=== PATIENT | male | born 1985 | race Two or more races ===

== ENCOUNTER 2016-09-19 00:39 | Emergency (ER) | payer SELFPAY ==
[2016-09-19] MEDS ORDERED: LIDOCAINE 2% INJ (20 MG/ML) 20 ML MDV INJ ONE (02:31)
[2016-09-19] MEDS ORDERED: IBUPROFEN 600 MG TABLET PO ONE (02:32)
--- NOTE | 2016-09-19 02:33 | ER Document Report ---
ED Wound - General Chief Complaint: Laceration Stated Complaint: RIGHT LEG LACERATION Mode of Arrival: Ambulatory Information source: Patient TRAVEL OUTSIDE OF THE U[place] IN LAST 30 DAYS: No - HPI Notes: Patient states he was at a friend's house when he tripped on a piece of wood and hit his right bravo on the wood. At approximately 7:00. He now has a laceration to the right bravo. He denies any numbness, tingling, weakness. He denies any nausea vomiting diarrhea. He denies any loss of consciousness. He denies any other injuries. Tetanus is up-to-date. Bleeding is controlled. No other complaints at this time. The pain is worse with touching the area, nothing makes it better. - Related Data Allergies/Adverse Reactions: clindamycin [Clindamycin] Allergy (Mild, Verified 08/26/14 17:30) Hives Sulfa (Sulfonamide Antibiotics) Allergy (Mild, Verified 08/26/14 17:30) Hives Past Medical History - Social History Smoking Status: Unknown if Ever Smoked Family History: Reviewed & Not Pertinent Patient has suicidal ideation: No Patient has homicidal ideation: No Pulmonary Medical History: Denies: Hx Tuberculosis Renal/ Medical History: Denies: Hx Peritoneal Dialysis Skin Medical History: Reports Hx MRSA Psychiatric Medical History: Reports: Hx Bipolar Disorder, Hx Post Traumatic Stress Disorder Infectious Medical History: Reports: Hx MRSA Past Surgical History: Reports: Hx Orthopedic Surgery - C2 fracture. Denies: Hx Pacemaker - Immunizations Immunizations up to date: Yes Hx Diphtheria, Pertussis, Tetanus Vaccination: Yes Review of Systems - Review of Systems -: Yes All other systems reviewed and negative Physical Exam - Vital signs Vitals: Temp Pulse Resp BP Pulse Ox 98.4 F 81 14 125/74 100 09/19/16 00:57 09/19/16 00:57 09/19/16 00:57 09/19/16 00:57 09/19/16 00:57 - Notes Notes: GENERAL: alert, cooperative, nontoxic, no distress. HEAD: normocephalic, atraumatic EYES: conjunctiva pink without discharge, no external redness or swelling. EARS: no external swelling, no external redness NOSE: atraumatic, no external swelling MOUTH/THROAT: mucous membranes moist and pink, posterior pharynx without erythema, swelling, exudate. No trismus or drooling. NECK: soft, supple, full range of motion, no meningismus. CHEST: no distress, lungs clear and equal throughout. No wheezing, rales, rhonchi. CARDIAC: regular rate and rhythm, no murmur, normal capillary refill, normal pulses. No peripheral edema noted. BACK: full range of motion, no CVA tenderness. EXTREMITIES: full range of motion of all extremities. No redness, no swelling. NEURO: alert and oriented 3, no focal deficits, full range of motion of all extremities. PYSCH: appropriate mood, affect. Patient is cooperative. SKIN: pink, warm, dry, no rash. - Skin Notes: 5 cm V-shaped laceration to the right anterior bravo. This is in the subcutaneous tissue. No foreign body identified. Bleeding is controlled. Compartments are soft. Normal neurovascular exam distally. Course - Re-evaluation Re-evalutation: 09/19/16 04:22 Patient is nontoxic appearing and stable vitals. The patient noted to have a laceration to the anterior right bravo. X-ray shows no fracture or foreign body. There is a small lucency in the posterior lateral aspect of the tibia which could represent a possible bone puncture. With this the patient was given a dose of Keflex. His tetanus is up-to-date. Was going to suture the wound closed, the patient declined to have this done at this time. I discussed the risks and benefits of suturing the wound and the patient still declines suture repair at this time. That if he comes back later that we'll not be able to suture the wound is a well -developed and open for 2 long, he verbalized an understanding of this. This point the wound is not bleeding and the wound margins are fairly well approximated. Wound was cleaned and will have a sterile nonstick dressing applied. He will be instructed to clean the wound twice a day with soap and water, dressing changes twice a day, follow up if not better in the next week, sooner for increased pain, fever, redness, drainage, any further concerns. The patient is noted to have elevated blood pressure during today's emergency department visit. The patient was informed of this finding. The patient was instructed that this may be related to pre-hypertension and requires further evaluation with a primary care provider. The patient has no hypertensive symptoms at this time. The patient's emergency department workup and current diagnosis were explained to the patient and or family. Follow-up instructions were provided. Medications if prescribed were discussed. Instructions for when to return to the emergency department including specific worrisome symptoms were discussed with the patient and/or family. - Vital Signs Vital signs: Temp Pulse Resp BP Pulse Ox 98.4 F 81 14 125/74 100 09/19/16 00:57 09/19/16 00:57 09/19/16 00:57 09/19/16 00:57 09/19/16 00:57 Discharge - Discharge Clinical Impression: Leg laceration Qualifiers: Encounter type: initial encounter Laterality: right Qualified Code(s): S81.811A - Laceration without foreign body, right lower leg, initial encounter Disposition: HOME, SELF-CARE Instructions: Laceration Care ([facility]) Additional Instructions: Wound twice a day with soap and water and keep a sterile dressing applied. Follow-up for increased pain, fever, redness, drainage, any further concerns. Your blood pressure was elevated during today's visit. Have this rechecked with your doctor. The medication you were prescribed today may cause drowsiness. Do not drive or operate heavy machinery while taking this medication. Prescriptions: Tramadol HCl [Ultram 50 mg Tablet] 50 mg PO Q6HP PRN #12 tablet PRN Reason: Cephalexin [Cephalexin 500 MG Tablet] 1 tab PO QID #40 tablet Forms: Elevated Blood Pressure
[2016-09-19] MEDS ORDERED: CEPHALEXIN 500 MG CAPSULE PO ONE (04:04)
[2016-09-19 04:35] VITALS: BP 109/49
== END 2016-09-19 04:36 | disposition home or self-care (01) ==
LOC: ER 00:39
DX: S81.811A Laceration without foreign body, right lower leg, initial encounter (principal); W18.09XA Striking against other object with subsequent fall, initial encounter
CPT/HCPCS: 99283; 73590; J3490

== ENCOUNTER 2017-12-28 08:58 | Emergency (ER) | payer SELFPAY ==
--- NOTE | 2017-12-28 09:41 | ER Document Report ---
ED Medical Screen (RME) - General Chief Complaint: Chest Pain Stated Complaint: BACK/CHEST PAINS Time Seen by Provider: 12/28/17 09:30 Notes: Patient is complaining of pain in the front of his chest for the past month, off and on. He has been seen at [facility] twice during this timeframe. Says they have done nothing for him. He did say that they did a chest x-ray but does not recall any other studies. Patient became upset with my questioning and pointing out that a chest x-ray is something, not nothing. TRAVEL OUTSIDE OF THE [place].S[place] IN LAST 30 DAYS: No - Related Data Allergies/Adverse Reactions: clindamycin [Clindamycin] Allergy (Mild, Verified 12/28/17 08:59) Hives Sulfa (Sulfonamide Antibiotics) Allergy (Mild, Verified 12/28/17 08:59) Hives Past Medical History Pulmonary Medical History: Denies: Hx Tuberculosis Renal/ Medical History: Denies: Hx Peritoneal Dialysis Skin Medical History: Reports Hx MRSA Psychiatric Medical History: Reports: Hx Bipolar Disorder, Hx Post Traumatic Stress Disorder Infectious Medical History: Reports: Hx MRSA Past Surgical History: Reports: Hx Orthopedic Surgery - C2 fracture. Denies: Hx Pacemaker - Immunizations Immunizations up to date: Yes Hx Diphtheria, Pertussis, Tetanus Vaccination: Yes Physical Exam - Vital signs Vitals: Temp Pulse Resp BP Pulse Ox 99.1 F 86 18 119/73 99 12/28/17 09:08 12/28/17 09:08 12/28/17 09:08 12/28/17 09:08 12/28/17 09:08 Course - Vital Signs Vital signs: Temp Pulse Resp BP Pulse Ox 99.1 F 86 18 119/73 99 12/28/17 09:08 12/28/17 09:08 12/28/17 09:08 12/28/17 09:08 12/28/17 09:08
[2017-12-28 09:59] LABS: ABSOLUTE BASOPHILS # (AUTO) 0.1 10^3/uL (0.0-0.2); ABSOLUTE EOSINOPHILS # (AUTO) 0.1 10^3/uL (0.0-0.6); ABSOLUTE LYMPHOCYTES (AUTO) 2.6 10^3/uL (0.5-4.7); ABSOLUTE MONOCYTES (AUTO) 0.4 10^3/uL (0.1-1.4); ABSOLUTE NEUT (AUTO) 2.2 10^3/uL (1.7-8.2); EOSINOPHILS % (AUTO) 1.1 % (0-6); HEMATOCRIT 39.3 % (37.9-51.0); HEMOGLOBIN 13.4 g/dL (13.5-17.0); LYMPHOCYTES % (AUTO) 48.8 % (13-45); MEAN CORPUSCULAR HEMOGLOBIN 32.3 pg (27.0-33.4); MEAN CORPUSCULAR VOLUME 95 fl (80-97); MONOCYTES % (AUTO) 7.3 % (3-13); PLATELET COUNT 220 10^3/uL (150-450); RED BLOOD COUNT 4.14 10^6/uL (4.35-5.55); SEGMENTED NEUTROPHILS % (AUTO) 41.8 % (42-78); TOTAL CELLS COUNTED % (AUTO) 100 %; WHITE BLOOD COUNT 5.3 10^3/uL (4.0-10.5)
--- NOTE | 2017-12-28 10:07 | ER Document Report ---
ED General - General Chief Complaint: Chest Pain Stated Complaint: BACK/CHEST PAINS Time Seen by Provider: 12/28/17 09:30 Mode of Arrival: Ambulatory Information source: Patient TRAVEL OUTSIDE OF THE [place] IN LAST 30 DAYS: No - HPI Notes: 32 yr old with a history of smoking a pack a day for at least 10 years male presents ED with complaints of chest pain 1 month. Reportedly has been evaluated with blood work and chest x-ray and told by a physician 2 weeks ago, is unsure what was checked for but states they "did nothing for me". States he took "some antibiotics that I find for a few days "states he felt better" couple weeks ago. Denies fevers, chills, palpitations, dyspnea, nausea, vomiting, diarrhea, abdominal pain, hematuria,blurred vision, double vision, loss of vision, speech changes, LH, dizziness, syncope, headaches, wheezing, ST , URI, neck pain, weakness, bowel or bladder dysfunction, saddle anesthesia, numbness or tingling in bilateral upper or lower extremities equally, muscle paralysis, weakness in bilateral upper or lower extremities equally or rash. Denies IV drug use. - Related Data Allergies/Adverse Reactions: clindamycin [Clindamycin] Allergy (Mild, Verified 12/28/17 08:59) Hives Sulfa (Sulfonamide Antibiotics) Allergy (Mild, Verified 12/28/17 08:59) Hives Past Medical History - General Information source: Patient - Social History Smoking Status: Current Every Day Smoker Chew tobacco use (# tins/day): No Frequency of alcohol use: None Drug Abuse: None Family History: Reviewed & Not Pertinent Patient has suicidal ideation: No Patient has homicidal ideation: No Pulmonary Medical History: Denies: Hx Tuberculosis Renal/ Medical History: Denies: Hx Peritoneal Dialysis Skin Medical History: Reports Hx MRSA Psychiatric Medical History: Reports: Hx Bipolar Disorder, Hx Post Traumatic Stress Disorder Infectious Medical History: Reports: Hx MRSA Past Surgical History: Reports: Hx Orthopedic Surgery - C2 fracture. Denies: Hx Pacemaker - Immunizations Immunizations up to date: Yes Hx Diphtheria, Pertussis, Tetanus Vaccination: Yes Review of Systems - Review of Systems Constitutional: No symptoms reported EENT: No symptoms reported Cardiovascular: See HPI Respiratory: No symptoms reported Gastrointestinal: No symptoms reported Genitourinary: No symptoms reported Male Genitourinary: No symptoms reported Musculoskeletal: No symptoms reported Skin: No symptoms reported Hematologic/Lymphatic: No symptoms reported Neurological/Psychological: No symptoms reported Physical Exam - Vital signs Vitals: Temp Pulse Resp BP Pulse Ox 99.1 F 86 18 119/73 99 12/28/17 09:08 12/28/17 09:08 12/28/17 09:08 12/28/17 09:08 12/28/17 09:08 - Notes Notes: PHYSICAL EXAMINATION: GENERAL: Well-appearing, well-nourished and in no acute distress. HEAD: Atraumatic, normocephalic. EYES: Pupils equal round and reactive to light, extraocular movements intact, sclera anicteric, conjunctiva are normal. ENT: Nares patent, oropharynx clear without exudates. Moist mucous membranes. NECK: Normal range of motion, supple without lymphadenopathy LUNGS: Breath sounds clear to auscultation bilaterally and equal. No wheezes rales or rhonchi. HEART: Regular rate and rhythm without murmurs ABDOMEN: Soft, nontender, nondistended abdomen. No guarding, no rebound. No masses appreciated. Musculoskeletal: Normal range of motion, no pitting or edema. No cyanosis. NEUROLOGICAL: Cranial nerves grossly intact. Normal speech, normal gait. Normal sensory, motor exams PSYCH: aggressive and yelling SKIN: Warm, Dry, normal turgor, no rashes or lesions noted. Course - Re-evaluation Re-evalutation: 12/28/17 11:09 32-year-old male who is afebrile, vitals stable and is in no distress CBC negative for leukocytosis, CMP negative for renal or hepatic disorder, electrolytes stable, cardiac enzymes negative. EKG negative for STEMI, heart rate 83, no ST segment elevations or STEMI. This provider did a physical exam while speaking with patient due to patient being aggressive, after complaining exam, patient was trying to explain to this provider that he thinks his infection "came out in my shit". This provider explained to the patient that he needed to clarify what that meant, any discoloration, melena, watery versus for etc., patient to ask started to yell "the infection came out in my shit" repeti is a female which is like tively without providing clarity. Pt stood up, pointed his finger at this provider while cursing and yelling degrading and deplorable offensive language. This provider patient that he needed to calm down , advised cursing is not acceptable and he needs to be respectful, this patient continued to scream obscenities. This provider left the room due to not feeling safe being alone with patient in room and was going to have security come to room. Patient left the room without any discharge information and eloped. After performing a Medical Screening Examination, I estimate there is LOW risk for RUPTURED ESOPHAGUS, PNEUMOTHORAX, PULMONARY EMBOLISM, ACUTE CORONARY SYNDROME, OR THORACIC AORTIC DISSECTION, thus I consider the discharge disposition reasonable. I have reevaluated this patient multiple times and no significant life threatening changes are noted. The patient and I have discussed the diagnosis and risks, and we agree with discharging home with close follow-up. We also discussed returning to the Emergency Department immediately if new or worsening symptoms occur. We have discussed the symptoms which are most concerning (e.g., bloody sputum, worsening pain or shortness of breath) that necessitate immediate return. 12/28/17 13:27 - Vital Signs Vital signs: Temp Pulse Resp BP Pulse Ox 99.1 F 86 13 121/70 98 12/28/17 09:08 12/28/17 09:08 12/28/17 10:35 12/28/17 10:35 12/28/17 10:35 - Laboratory Result Diagrams: 12/28/17 09:45 12/28/17 09:45 Laboratory results interpreted by me: 12/28/17 12/28/17 09:45 09:45 RBC 4.14 L Hgb 13.4 L Seg Neutrophils % 41.8 L Lymphocytes % 48.8 H Creatine Kinase 409 H Discharge - Discharge Clinical Impression: Costochondritis, History of smoking, Cough Condition: Stable Disposition: ELOPED
[2017-12-28 10:12] LABS: ALANINE AMINOTRANSFERASE 34 U/L (21-72); ALBUMIN 4.7 g/dL (3.5-5.0); ALKALINE PHOSPHATASE 61 U/L (38-126); ANION GAP 10 (5-19); ASPARTATE AMINO TRANSFERASE 38 U/L (17-59); BILIRUBIN,DIRECT 0.3 mg/dL (0.0-0.4); BILIRUBIN,TOTAL 0.8 mg/dL (0.2-1.3); BLOOD UREA NITROGEN 12 mg/dL (7-20); CALCIUM 9.7 mg/dL (8.4-10.2); CARBON DIOXIDE 27 mmol/L (22-30); CHLORIDE 106 mmol/L (98-107); CREATINE KINASE 409 U/L (55-170); GLUCOSE 101 mg/dL (75-110); LIPASE 39.1 U/L (23-300); POTASSIUM 4.6 mmol/L (3.6-5.0); SODIUM 143.3 mmol/L (137-145); TOTAL PROTEIN 7.4 g/dL (6.3-8.2)
[2017-12-28 10:24] LABS: CREATINE KINASE MB 4.06 ng/mL (<4.55)
[2017-12-28 10:25] LABS: TROPONIN I < 0.012 ng/mL
--- NOTE | 2017-12-28 10:51 | RADIOLOGY REPORT (SQ) ---
EXAM DESCRIPTION: CHEST 2 VIEWS COMPLETED DATE/TIME: 12/28/2017 10:13 am REASON FOR STUDY: Chest pain COMPARISON: September 2013 EXAM PARAMETERS: NUMBER OF VIEWS: two views TECHNIQUE: Digital Frontal and Lateral radiographic views of the chest acquired. RADIATION DOSE: NA LIMITATIONS: none FINDINGS: LUNGS AND PLEURA: No opacities, masses or pneumothorax. No pleural effusion. MEDIASTINUM AND HILAR STRUCTURES: No masses or contour abnormalities. HEART AND VASCULAR STRUCTURES: Heart normal size. No evidence for failure. BONES: No acute findings. HARDWARE: None in the chest. OTHER: No other significant finding. IMPRESSION: NO ACUTE RADIOGRAPHIC FINDING IN THE CHEST. TECHNICAL DOCUMENTATION: JOB ID: [id number] [employer]- All Rights Reserved Reading location - IP/workstation name: [email or web address]
[2017-12-28 11:11] VITALS: BP 121/70
--- NOTE | 2017-12-29 00:18 | EKG REPORT ---
SEVERITY:- NORMAL ECG - SINUS RHYTHM : Confirmed by: Daija Barakat MD 29-Dec-2017 00:16:56
== END 2017-12-28 11:09 | disposition left against medical advice (07) ==
LOC: ER 08:58
DX: R07.9 Chest pain, unspecified (principal); M54.9 Dorsalgia, unspecified; F17.200 Nicotine dependence, unspecified, uncomplicated; Z88.3 Allergy status to other anti-infective agents; Z88.2 Allergy status to sulfonamides; Z86.14 Personal history of Methicillin resistant Staphylococcus aureus infection
CPT/HCPCS: 36415; 71046; 80053; 82550; 82553; 83690; 84484; 85025; 93005; 93010; 99285

== ENCOUNTER 2019-01-10 23:51 | Emergency (ER) | payer SELFPAY ==
--- NOTE | 2019-01-11 01:36 | ER Document Report ---
ED Psych Disorder / Suicide - General Chief Complaint: Psych Problem Stated Complaint: IVC Time Seen by Provider: 01/11/19 00:59 Notes: Patient is a 33-year-old male that comes emergency department with law enforcement escort for chief complaint of suicidal ideations and making threats to his family. Patient comes with already completed IVC paperwork. This was reportedly completed by his significant other. Reportedly patient had been text ing his family that his life was worthless and he did not want to live anymore. He also reportedly threatened to kill himself and everyone in the vehicle earlier today. Patient states that he feels like he is under a ton of stress and that no matter how hard he works he does not get shown any appreciation by his family. He does have past medical history of bipolar disorder, PTSD, and Suboxone dependence. Patient denies any recreational drugs, denies alcohol, states he was actually planning on going" drinking heavily tonight" before he was picked up, he states he used to have a problem with heavy alcohol abuse. He states that he actually does not mind being here because he feels like he does need some help. TRAVEL OUTSIDE OF THE [place] IN LAST 30 DAYS: No - Related Data Allergies/Adverse Reactions: clindamycin [Clindamycin] Allergy (Mild, Verified 01/10/19 23:53) Hives Sulfa (Sulfonamide Antibiotics) Allergy (Mild, Verified 01/10/19 23:53) Hives Past Medical History - General Information source: Patient - Social History Smoking Status: Current Some Day Smoker Drug Abuse: Marijuana Lives with: Family Family History: Reviewed & Not Pertinent Pulmonary Medical History: Denies: Hx Tuberculosis Renal/ Medical History: Denies: Hx Peritoneal Dialysis Skin Medical History: Reports Hx MRSA Psychiatric Medical History: Reports: Hx Bipolar Disorder, Hx Post Traumatic Stress Disorder Infectious Medical History: Reports: Hx MRSA Past Surgical History: Reports: Hx Orthopedic Surgery - C2 fracture. Denies: Hx Pacemaker - Immunizations Immunizations up to date: Yes Hx Diphtheria, Pertussis, Tetanus Vaccination: Yes Review of Systems - Review of Systems Constitutional: No symptoms reported EENT: No symptoms reported Cardiovascular: No symptoms reported Respiratory: No symptoms reported Gastrointestinal: No symptoms reported Genitourinary: No symptoms reported Male Genitourinary: No symptoms reported Musculoskeletal: No symptoms reported Skin: No symptoms reported Hematologic/Lymphatic: No symptoms reported Neurological/Psychological: See HPI Physical Exam - Vital signs Vitals: Temp Pulse Resp BP Pulse Ox 98.1 F 85 18 120/66 97 01/10/19 23:54 01/10/19 23:54 01/10/19 23:54 01/10/19 23:54 01/10/19 23:54 Course - Re-evaluation Re-evalutation: Patient is very calm, very cooperative, stating he does not mind being here. He is already on IVC paperwork. His physical exam is unremarkable, his vital signs are unremarkable. CBC, chemistry unremarkable. Urinalysis shows some white blood cells but patient has no flank pain, vomiting, or urinary symptoms. Culture placed. He states that he gets dehydrated from working outside, elevate specific gravity noted, he was given p.o. fluids. Alcohol, salicylates, acetaminophen negative. Drug screen shows marijuana but is otherwise unremarkable. Patient sleeping on reevaluation. Patient is medically cleared pending mental health evaluation. - Vital Signs Vital signs: Temp Pulse Resp BP Pulse Ox 98.1 F 85 18 120/66 97 01/10/19 23:54 01/10/19 23:54 01/10/19 23:54 01/10/19 23:54 01/10/19 23:54 - Laboratory Result Diagrams: 01/11/19 01:28 01/11/19 01:28 Laboratory results interpreted by me: 01/11/19 01/11/19 01/11/19 01:28 01:28 03:58 RBC 3.79 L Hgb 12.2 L Hct 35.9 L Potassium 3.5 L Urine Ketones TRACE H Urine Urobilinogen 4.0 H Ur Leukocyte Esterase TRACE H Salicylates < 1.0 L Acetaminophen < 10 L - EKG Interpretation by Me Additional EKG results interpreted by me: EKG shows sinus rhythm at a rate of 64, normal axis, QTC of 4 9, no T wave inversions or ST segment changes in consecutive leads. No significant change from prior. Discharge - Discharge Clinical Impression: Suicidal ideations Condition: Stable Disposition: PSYCH HOSP/UNIT
[2019-01-11 01:45] LABS: ABSOLUTE BASOPHILS # (AUTO) 0.1 10^3/uL (0.0-0.2); ABSOLUTE EOSINOPHILS # (AUTO) 0.1 10^3/uL (0.0-0.6); ABSOLUTE LYMPHOCYTES (AUTO) 2.7 10^3/uL (0.5-4.7); ABSOLUTE MONOCYTES (AUTO) 0.5 10^3/uL (0.1-1.4); ABSOLUTE NEUT (AUTO) 2.9 10^3/uL (1.7-8.2); BASOPHILS % (AUTO) 0.9 % (0-2); EOSINOPHILS % (AUTO) 1.5 % (0-6); HEMATOCRIT 35.9 % (37.9-51.0); HEMOGLOBIN 12.2 g/dL (13.5-17.0); LYMPHOCYTES % (AUTO) 44.1 % (13-45); MEAN CORPUSCULAR HEMOGLOBIN 32.4 pg (27.0-33.4); MEAN CORPUSCULAR HGB CONC 34.1 g/dL (32.0-36.0); MEAN CORPUSCULAR VOLUME 95 fl (80-97); MONOCYTES % (AUTO) 7.6 % (3-13); PLATELET COUNT 180 10^3/uL (150-450); RED BLOOD COUNT 3.79 10^6/uL (4.35-5.55); RED CELL DISTRIBUTION WIDTH 12.3 % (11.5-14.0); SEGMENTED NEUTROPHILS % (AUTO) 45.9 % (42-78); TOTAL CELLS COUNTED % (AUTO) 100 %; WHITE BLOOD COUNT 6.2 10^3/uL (4.0-10.5)
[2019-01-11 02:02] LABS: ACETAMINOPHEN < 10 ug/mL (10-30); ALBUMIN 4.6 g/dL (3.5-5.0); ALCOHOL < 10 mg/dL (NONE DETECTED); ALKALINE PHOSPHATASE 61 U/L (38-126); ANION GAP 8 (5-19); ASPARTATE AMINO TRANSFERASE 33 U/L (17-59); BILIRUBIN,DIRECT 0.3 mg/dL (0.0-0.4); BILIRUBIN,TOTAL 0.8 mg/dL (0.2-1.3); BLOOD UREA NITROGEN 15 mg/dL (7-20); CALCIUM 9.5 mg/dL (8.4-10.2); CARBON DIOXIDE 27 mmol/L (22-30); CHLORIDE 106 mmol/L (98-107); GLUCOSE 93 mg/dL (75-110); POTASSIUM 3.5 mmol/L (3.6-5.0); SALICYLATE < 1.0 mg/dL (2.0-20.0); TOTAL PROTEIN 7.1 g/dL (6.3-8.2)
[2019-01-11 04:26] LABS: APPEARANCE,URINE SLIGHTLY-CLOUDY; BILIRUBIN,URINE NEGATIVE (NEGATIVE); COLOR,URINE AMBER; GLUCOSE, URINE NEGATIVE (NEGATIVE); KETONES,URINE TRACE mg/dL (NEGATIVE); LEUKOCYTE ESTERASE,URINE TRACE (NEGATIVE); NITRITE,URINE NEGATIVE (NEGATIVE); PROTEIN,URINE NEGATIVE (NEGATIVE); URINE SPECIFIC GRAVITY 1.031
[2019-01-11 04:43] LABS: URINE AMPHETAMINES SCREEN NEGATIVE; URINE BARBITURATES SCREEN NEGATIVE; URINE BENZODIAZEPINES SCREEN NEGATIVE; URINE COCAINE SCREEN NEGATIVE; URINE MARIJUANA (THC) SCREEN UNCONFIRMED POSITIVE; URINE METHADONE SCREEN NEGATIVE; URINE PHENCYCLIDINE SCREEN NEGATIVE
--- NOTE | 2019-01-11 07:38 | EKG REPORT ---
SEVERITY:- ABNORMAL ECG - ACCELERATED JUNCTIONAL ESCAPE RHYTHM : Confirmed by: Charlie Ta MD 11-Jan-2019 07:38:17
--- NOTE | 2019-01-11 10:26 | ER Document Report ---
Doctor's Note Notes: 01/11/19 10:25 Rounds: Chart reviewed and patient interviewed. Patient being evaluated for expressing suicidal thoughts. Patient says that he has concerns about his job, his , and his kids. Does not feel suicidal today. Lab studies showed positive marijuana but otherwise normal. Eitel signs are all normal. Patient appears to be medically stable for transfer or discharge. Barbara Cohen MD 01/11/19 19:34 Nurses patient thinks she is having some symptoms of withdrawal from his Suboxone. I have prescribed him Vistaril 50 mg 4 times a day as needed.
[2019-01-11] MEDS ORDERED: NICOTINE 21 MG/24 HR PATCH.TD24 TD ONE (13:26)
[2019-01-11] MEDS: BENZTROPINE MESYLATE 1 MG TABLET PO SCH (15:50)
[2019-01-11] MEDS: OLANZAPINE 5 MG TABLET PO SCH (17:48)
[2019-01-11] MEDS: HYDROXYZINE PAMOATE 50 MG CAPSULE PO PRN (22:18)
[2019-01-12 06:50] VITALS: BP 128/78
--- NOTE | 2019-01-12 09:20 | ER Document Report ---
Doctor's Note Notes: 01/12/19 09:19 Patient seen and examined felt signs reviewed, patient appeared well, no suicidal thoughts this morning, stating that he feels a lot better just having rest and being in the emergency department, and has a plan, to follow-up with [facility] tomorrow, and has plans to organize some of his personal bu siness, over the weekend, and he is overall feeling a lot more confident, and no longer feels suicidal I feel that at this time the patient is stable from a medical and psychiatric standpoint to be discharged home.
[2019-01-12] MEDS: OLANZAPINE 5 MG TABLET PO SCH (09:26)
[2019-01-12] MEDS: HYDROXYZINE PAMOATE 50 MG CAPSULE PO PRN (09:26)
[2019-01-12] MEDS: BENZTROPINE MESYLATE 1 MG TABLET PO SCH (09:26)
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
== END 2019-01-12 11:43 | disposition home or self-care (01) ==
LOC: ER 23:51
DX: R45.851 Suicidal ideations (principal); Z63.5 Disruption of family by separation and divorce; F17.200 Nicotine dependence, unspecified, uncomplicated; F12.10 Cannabis abuse, uncomplicated; Z88.1 Allergy status to other antibiotic agents; Z88.2 Allergy status to sulfonamides
CPT/HCPCS: 36415; 80053; 80307; 81001; 85025; 87086; 87088; 87186; 93005; 93010; 99284

== ENCOUNTER 2019-05-22 08:49 | Emergency (ER) | payer SELFPAY ==
[2019-05-22 08:55] VITALS: BP 135/69
[2019-05-22] MEDS ORDERED: ONDANSETRON HCL INJ/PF 4 MG/2 ML SDV IV ONE (09:34)
[2019-05-22] MEDS ORDERED: KETOROLAC TROMETHAMINE INJ/PF 30 MG/1 ML SDV IV ONE (09:34)
[2019-05-22] MEDS ORDERED: NORMAL SALINE 1000 ML 1,000 ML IV ONE ×3 (09:34→13:40)
--- NOTE | 2019-05-22 09:37 | ER Document Report ---
ED Medical Screen (RME) - General Chief Complaint: General Weakness Stated Complaint: WEAKNESS Time Seen by Provider: 05/22/19 09:27 TRAVEL OUTSIDE OF THE [place] IN LAST 30 DAYS: No - HPI Notes: 05/22/19 09:35 34 year old male to the ED with C/O all over body pain, but most concentrated in his ribs and his abdomen with associated subjective fevers for two days. He states he feels "weak". Denies any chest pain or shortness of breath. Did not have a flu shot this year. Does endorse a cough. I have performed a medical screening exam on the patient and have determined that the patient will require further management by mainside provider. I have placed initial orders to help expedite the patient's care. - Related Data Allergies/Adverse Reactions: clindamycin [Clindamycin] Allergy (Mild, Verified 01/10/19 23:53) Hives Sulfa (Sulfonamide Antibiotics) Allergy (Mild, Verified 01/10/19 23:53) Hives Past Medical History Pulmonary Medical History: Denies: Hx Tuberculosis Renal/ Medical History: Denies: Hx Peritoneal Dialysis Skin Medical History: Reports Hx MRSA Psychiatric Medical History: Reports: Hx Bipolar Disorder, Hx Post Traumatic Stress Disorder Infectious Medical History: Reports: Hx MRSA Past Surgical History: Reports: Hx Orthopedic Surgery - C2 fracture. Denies: Hx Pacemaker - Immunizations Immunizations up to date: Yes Hx Diphtheria, Pertussis, Tetanus Vaccination: Yes Physical Exam - Vital signs Vitals: Temp Pulse Resp BP Pulse Ox 98.2 F 104 H 16 135/69 H 97 05/22/19 08:54 05/22/19 08:54 05/22/19 08:54 05/22/19 08:54 05/22/19 08:54 Course - Vital Signs Vital signs: Temp Pulse Resp BP Pulse Ox 98.2 F 104 H 16 135/69 H 97 05/22/19 09:31 05/22/19 08:54 05/22/19 09:31 05/22/19 08:54 05/22/19 09:31
[2019-05-22 10:30] LABS: A TYPE INFLUENZA AG NEGATIVE (NEGATIVE); B INFLUENZA AG NEGATIVE (NEGATIVE)
[2019-05-22 10:51] LABS: HEMOGLOBIN 13.5 g/dL (13.5-17.0); MEAN CORPUSCULAR HGB CONC 34.7 g/dL (32.0-36.0); MEAN CORPUSCULAR VOLUME 95 fl (80-97); PLATELET COUNT 205 10^3/uL (150-450); RED CELL DISTRIBUTION WIDTH 12.2 % (11.5-14.0)
[2019-05-22 10:53] LABS: APPEARANCE,URINE CLEAR; BILIRUBIN,URINE NEGATIVE (NEGATIVE); COLOR,URINE STRAW; GLUCOSE, URINE NEGATIVE (NEGATIVE); KETONES,URINE NEGATIVE (NEGATIVE); LEUKOCYTE ESTERASE,URINE NEGATIVE (NEGATIVE); NITRITE,URINE NEGATIVE (NEGATIVE); PROTEIN,URINE NEGATIVE (NEGATIVE); URINE SPECIFIC GRAVITY 1.001; UROBILINOGEN,URINE NEGATIVE mg/dL (<2.0)
--- NOTE | 2019-05-22 11:04 | RADIOLOGY REPORT (SQ) ---
EXAM DESCRIPTION: CHEST 2 VIEWS COMPLETED DATE/TIME: 05/22/2019 10:17 am REASON FOR STUDY: rib pain COMPARISON: 12/28/2017 EXAM PARAMETERS: NUMBER OF VIEWS: two views TECHNIQUE: Digital Frontal and Lateral radiographic views of the chest acquired. RADIATION DOSE: NA LIMITATIONS: none FINDINGS: LUNGS AND PLEURA: Parenchymal opacity at the right lung base. Left lung is clear. MEDIASTINUM AND HILAR STRUCTURES: No masses or contour abnormalities. HEART AND VASCULAR STRUCTURES: Heart normal size. No evidence for failure. BONES: No acute findings. HARDWARE: None in the chest. OTHER: No other significant finding. IMPRESSION: Segmental right lower lobe pneumonia. TECHNICAL DOCUMENTATION: JOB ID: [id number] [employer]- All Rights Reserved Reading location - IP/workstation name: [email or web address]
[2019-05-22 11:23] LABS: ALBUMIN 4.3 g/dL (3.5-5.0); ALKALINE PHOSPHATASE 75 U/L (38-126); ANION GAP 13 (5-19); ASPARTATE AMINO TRANSFERASE 26 U/L (17-59); BILIRUBIN,DIRECT 0.1 mg/dL (0.0-0.4); BILIRUBIN,TOTAL 1.5 mg/dL (0.2-1.3); BLOOD UREA NITROGEN 11 mg/dL (7-20); CALCIUM 9.8 mg/dL (8.4-10.2); CARBON DIOXIDE 25 mmol/L (22-30); CHLORIDE 99 mmol/L (98-107); GLUCOSE 123 mg/dL (75-110); POTASSIUM 3.7 mmol/L (3.6-5.0); TOTAL PROTEIN 7.6 g/dL (6.3-8.2)
[2019-05-22 11:25] LABS: ABSOLUTE LYMPHOCYTES# (MANUAL) 1.2 10^3/uL (0.5-4.7); ABSOLUTE MONOCYTES # (MANUAL) 1.4 10^3/uL (0.1-1.4); BAND NEUTROPHILS % (MANUAL) 1 % (3-5); BASOPHILS % (MANUAL) 0 % (0-2); EOSINOPHILS % (MANUAL) 0 % (0-6); LYMPHOCYTES % (MANUAL) 5 % (13-45); MONOCYTES % (MANUAL) 6 % (3-13); SEGMENTED NEUTROPHILS % (MAN) 88 % (42-78); TOTAL CELLS COUNTED 100
[2019-05-22 11:26] LABS: HYPOCHROMASIA SLIGHT; PLATELET COMMENT ADEQUATE; POLYCHROMASIA SLIGHT
[2019-05-22] MEDS ORDERED: CEFTRIAXONE 1 GM/D5W RTU 1 GM/50 ML RTUPB IV ONE (11:57)
[2019-05-22] MEDS ORDERED: AZITHROMYCIN 250 MG TABLET PO ONE (11:57)
[2019-05-22] MEDS ORDERED: ACETAMINOPHEN 325 MG TABLET PO ONE (12:15)
--- NOTE | 2019-05-22 12:18 | ER Document Report ---
ED General - General Chief Complaint: General Weakness Stated Complaint: WEAKNESS Time Seen by Provider: 05/22/19 09:27 Information source: Patient Notes: Mr. Jay is a 34-year-old male presenting to the ED for right-sided back pain and diffuse body aches. Patient states that he has been feeling ill for at least a week now with right-sided mid back pain. He denies any falls or trauma. No known lifting of heavy objects. Patient states he is only had a cough for the past 2 days which is nonproductive of any sputum. However he states that he is unable to cough hard enough to bring anything up. He endorses subjective fevers and chills without any documented temperature. Patient does smoke approximately 2 packs/day and has smoked this much for about 20 years. Patient denies any known ill contacts or recent travel. He did not receive a flu vaccine this year. He states he is never been diagnosed with any known medical problems however he does not see a physician often. TRAVEL OUTSIDE OF THE [place] IN LAST 30 DAYS: No - Related Data Allergies/Adverse Reactions: clindamycin [Clindamycin] Allergy (Mild, Verified 01/10/19 23:53) Hives Sulfa (Sulfonamide Antibiotics) Allergy (Mild, Verified 01/10/19 23:53) Hives Past Medical History - Social History Smoking Status: Unknown if Ever Smoked Family History: Reviewed & Not Pertinent Patient has suicidal ideation: No Patient has homicidal ideation: No Pulmonary Medical History: Denies: Hx Tuberculosis Renal/ Medical History: Denies: Hx Peritoneal Dialysis Skin Medical History: Reports Hx MRSA Psychiatric Medical History: Reports: Hx Bipolar Disorder, Hx Post Traumatic Stress Disorder Infectious Medical History: Reports: Hx MRSA Past Surgical History: Reports: Hx Orthopedic Surgery - C2 fracture. Denies: Hx Pacemaker - Immunizations Immunizations up to date: Yes Hx Diphtheria, Pertussis, Tetanus Vaccination: Yes Review of Systems - Review of Systems Constitutional: See HPI EENT: No symptoms reported Cardiovascular: No symptoms reported Respiratory: See HPI Gastrointestinal: No symptoms reported Genitourinary: No symptoms reported Male Genitourinary: No symptoms reported Musculoskeletal: No symptoms reported Skin: No symptoms reported Hematologic/Lymphatic: No symptoms reported Neurological/Psychological: No symptoms reported Physical Exam - Vital signs Vitals: Temp Pulse Resp BP Pulse Ox 98.2 F 104 H 16 135/69 H 97 05/22/19 08:54 12/16/19 08:54 05/22/19 08:54 05/22/19 08:54 05/22/19 08:54 Interpretation: Tachycardic - General General appearance: Appears well, Alert - HEENT Head: Normocephalic, Atraumatic Eyes: Normal Pupils: PERRL - Respiratory Respiratory status: No respiratory distress Chest status: Nontender Breath sounds: Decreased air movement - Significantly decreased air movement in the right lower lobe., Nonproductive cough, Rales - In the right lower lobe Chest palpation: Normal - Cardiovascular Rhythm: Regular Heart sounds: Normal auscultation Murmur: No - Abdominal Inspection: Normal Distension: No distension Bowel sounds: Normal Tenderness: Nontender Organomegaly: No organomegaly - Back Back: Normal, Nontender - Extremities General upper extremity: Normal inspection, Nontender, Normal color, Normal ROM, Normal temperature General lower extremity: Normal inspection, Nontender, Normal color, Normal ROM, Normal temperature, Normal weight bearing. No: Red's sign - Neurological Neuro grossly intact: Yes Cognition: Normal Orientation: AAOx4 Philip Coma Scale Eye Opening: Spontaneous Dubberly Coma Scale Verbal: Oriented Dubberly Coma Scale Motor: Obeys Commands Philip Coma Scale Total: 15 Speech: Normal Motor strength normal: LUE, RUE, LLE, RLE Sensory: Normal - Psychological Associated symptoms: Normal affect, Normal mood - Skin Skin Temperature: Warm Skin Moisture: Dry Skin Color: Normal Course - Re-evaluation Re-evalutation: Patient is ill-appearing but nontoxic. Initial vitals notable for tachycardia. Differential diagnosis includes dehydration, URI, muscular strain, pneumonia, sepsis (less likely) 05/22/19 12:15 Chest x-ray shows right-sided lower lobe pneumonia. When I examined the patient , he states the pain is directly located underneath my hand, in the right lower lobe. Likely related to diaphragmatic irritation secondary to pneumonia. Patient is an aggressive and heavy smoker. Will administer DuoNeb for aid with respiratory symptoms. CBC notable for leukocytosis of 23 with a left shift of 88%. Absolute neutrophil count is also elevated at 20.5. MP shows a mildly elevated total bili 1.5. This is all likely related to the fact that the pneumonia is located on the right lower lobe and therefore irritating the diaphragm as well as the liver and gallbladder. UA is unremarkable. Patient ordered for ceftriaxone and azithromycin. Patient also ordered for lactic acid and blood cultures. If the lactate is significantly elevated, will consider sepsis and admission. Patient ordered for second liter of fluid as well as Tylenol. Will reassess after the remainder of labs return. 05/22/19 13:41 Patient's lactate is within normal limits at 0.8. However nursing staff n otified me that the patient is nauseated and vomited 1 time. Will administer Reglan IV as well as half a milligram of Ativan as the patient clinically did appear slightly anxious. Will reassess pending p.o. challenge, patient can be safely discharged. 05/22/19 15:44 Patient feels significantly improved after Reglan and small dose of Ativan. Tolerating p.o. here in ED without any issues. Patient will be discharged with p.o. antibiotics and given return precautions. - Vital Signs Vital signs: Temp Pulse Resp BP Pulse Ox 98.2 F 104 H 16 135/69 H 97 05/22/19 09:31 05/22/19 08:54 05/22/19 09:31 05/22/19 08:54 05/22/19 09:31 - Laboratory Result Diagrams: 05/22/19 10:30 05/22/19 10:30 Laboratory results interpreted by me: 05/22/19 05/22/19 05/22/19 10:30 10:30 10:30 WBC 23.0 H RBC 4.10 L Seg Neuts % (Manual) 88 H Band Neutrophils % 1 L Lymphocytes % (Manual) 5 L Abs Neuts (Manual) 20.5 H Glucose 123 H Total Bilirubin 1.5 H Urine Blood SMALL H Discharge - Discharge Clinical Impression: Generalized body aches Right lower lobe pneumonia Qualifiers: Pneumonia type: due to unspecified organism Qualified Code(s): J18.9 - Pneumonia, unspecified organism Condition: Good Disposition: HOME, SELF-CARE Instructions: Pneumonia ([facility]), Stop Smoking ([facility]) Additional Instructions: It is important that you stop smoking. Follow-up with your primary care doctor as needed. Even if you are feeling better, make sure you take the full course of antibiotic biotics until they are completed. Return to the ED if you develop any worsening cough, shortness of breath, lightheadedness, fever, or any other concerning symptoms. Prescriptions: Azithromycin 250 mg PO DAILY #4 tablet Cephalexin Monohydrate [Keflex 500 mg Capsule] 500 mg PO TID 5 Days #15 capsule Forms: Smoking Cessation Education
[2019-05-22] MEDS ORDERED: METOCLOPRAMIDE HCL INJ/PF 10 MG/2 ML SDV IV ONE (13:40)
[2019-05-22] MEDS ORDERED: LORAZEPAM INJ 2 MG/1 ML VIAL IV ONE (13:41)
--- NOTE | 2019-05-23 00:30 | EKG REPORT ---
SEVERITY:- BORDERLINE ECG - SINUS RHYTHM BORDERLINE INFERIOR Q WAVES : Confirmed by: Hubert Keating 23-May-2019 00:29:23
== END 2019-05-22 16:05 | disposition home or self-care (01) ==
LOC: ER 08:49
DX: J18.9 Pneumonia, unspecified organism (principal); R11.2 Nausea with vomiting, unspecified; M54.5 Low back pain; R05 Cough; R00.0 Tachycardia, unspecified; R79.89 Other specified abnormal findings of blood chemistry; F17.200 Nicotine dependence, unspecified, uncomplicated; Z88.1 Allergy status to other antibiotic agents; Z88.2 Allergy status to sulfonamides
CPT/HCPCS: 36415; 87040; 83690; 83735; 85025; 80053; 81001; 83605; 87804; 71046; J1885; J2765; J2060; J2405; J7030; J0696; 93005; 93010; 96361; 96365; 96375; 99285

== ENCOUNTER 2019-11-22 14:00 | Emergency (ER) | payer SELFPAY ==
[2019-11-22 14:41] VITALS: BP 137/84
[2019-11-22] MEDS ORDERED: DIPH/PERTUSS(ACELL)/TETANUS VAC/PF 0.5 ML SYR (>=10YO) IM ONE (15:29)
--- NOTE | 2019-11-22 15:32 | ER Document Report ---
ED Medical Screen (RME) - General Chief Complaint: Leg Pain Stated Complaint: RIGHT LEG INJURY Time Seen by Provider: 11/22/19 15:23 Mode of Arrival: Ambulatory Information source: Patient Notes: HPI; 34-year-old male presents to the emergency room with a wound to his right medial proximal tibial fibula. Patient states he was doing yard work when he accidentally cut his lower leg with a machete a week ago. Last tetanus. States it just started draining some pus today. Increasing pain with erythema and swelling today. PE: Alert and oriented x3. Mild distress noted. Right medial distal fibula with a 3 cm area of erythema with purulent drainage noted in the center. Warm and tender to palpation. I have greeted and performed a rapid initial assessment of this patient. A comprehensive ED assessment and evaluation of the patient, analysis of test results and completion of the medical decision making process will be conducted by additional ED providers. I have specifically instructed the patient or family members with the patient to immediately return to any nursing staff should anything change in the patient's condition or with their chief complaint. TRAVEL OUTSIDE OF THE [place] IN LAST 30 DAYS: No - Related Data Allergies/Adverse Reactions: clindamycin [Clindamycin] Allergy (Mild, Verified 01/10/19 23:53) Hives Sulfa (Sulfonamide Antibiotics) Allergy (Mild, Verified 01/10/19 23:53) Hives Past Medical History Pulmonary Medical History: Denies: Hx Tuberculosis Renal/ Medical History: Denies: Hx Peritoneal Dialysis Skin Medical History: Reports Hx MRSA Psychiatric Medical History: Reports: Hx Bipolar Disorder, Hx Post Traumatic Stress Disorder Infectious Medical History: Reports: Hx MRSA Past Surgical History: Reports: Hx Orthopedic Surgery - C2 fracture. Denies: Hx Pacemaker - Immunizations Immunizations up to date: Yes Hx Diphtheria, Pertussis, Tetanus Vaccination: Yes Physical Exam - Vital signs Vitals: Temp 99.1 F 11/22/19 14:01 Course - Vital Signs Vital signs: Temp Pulse Resp BP Pulse Ox 99.1 F 93 16 137/84 H 99 11/22/19 14:39 11/22/19 14:39 11/22/19 14:39 11/22/19 14:39 11/22/19 14:39
--- NOTE | 2019-11-22 16:14 | RADIOLOGY REPORT (SQ) ---
EXAM DESCRIPTION: TIBIA FIBULA RIGHT IMAGES COMPLETED DATE/TIME: 11/22/2019 3:44 pm REASON FOR STUDY: injury COMPARISON: None. NUMBER OF VIEWS: Two views. TECHNIQUE: Two radiographic images acquired of the right tibia and fibula to include the knee and an kle in at least one projection. LIMITATIONS: None. FINDINGS: MINERALIZATION: Normal. BONES: No acute fracture or dislocation. No worrisome bone lesions. SOFT TISSUES: No obvious swelling or foreign body. Soft tissue laceration just proximal to the media l malleolus. No underlying bony injury OTHER: No other significant finding. IMPRESSION: Soft tissue laceration just proximal to the medial malleolus. No retained radiopaque fo reign body. No soft tissue gas. No bony injury. TECHNICAL DOCUMENTATION: JOB ID: [id number] [employer]- All Rights Reserved Reading location - IP/workstation name: [email or web address]
== END 2019-11-22 18:32 | disposition left against medical advice (07) ==
LOC: ER 14:00
DX: Z53.29 Procedure and treatment not carried out because of patient's decision for other reasons (principal); M79.604 Pain in right leg; W27.8XXA Contact with other nonpowered hand tool, initial encounter; Z88.1 Allergy status to other antibiotic agents; Z88.2 Allergy status to sulfonamides
CPT/HCPCS: 99281

== ENCOUNTER 2019-11-22 19:47 | Emergency (ER) | payer SELFPAY ==
[2019-11-22] MEDS ORDERED: CEPHALEXIN 500 MG CAPSULE PO ONE (23:07)
[2019-11-22] MEDS ORDERED: DIPH/PERTUSS(ACELL)/TETANUS VAC/PF 0.5 ML SYR (>=10YO) IM ONE (23:30)
--- NOTE | 2019-11-22 23:34 | ER Document Report ---
ED General - General Chief Complaint: Leg Pain Stated Complaint: RIGHT ANKLE PAIN Time Seen by Provider: 11/22/19 22:43 Primary Care Provider: GREG MORALES PA-C [Primary Care Provider] - Follow up as needed Notes: 34-year-old male presents emergency department complaining that he accidentally cut himself with a machete on the right ankle a few days ago. States that since then the pain has been increasing, the ankle swelling has been increasing and he is developed some drainage from the area. Denies numbness, tingling, weakness or difficulty walking. Denies fevers or lymphangitic streaking. TRAVEL OUTSIDE OF THE [place] IN LAST 30 DAYS: No - Related Data Allergies/Adverse Reactions: clindamycin [Clindamycin] Allergy (Mild, Verified 01/10/19 23:53) Hives Sulfa (Sulfonamide Antibiotics) Allergy (Mild, Verified 01/10/19 23:53) Hives Past Medical History - General Information source: Patient - Social History Smoking Status: Current Every Day Smoker Chew tobacco use (# tins/day): No Frequency of alcohol use: Heavy Drug Abuse: Marijuana Family History: Reviewed & Not Pertinent Patient has homicidal ideation: No Pulmonary Medical History: Denies: Hx Tuberculosis Renal/ Medical History: Denies: Hx Peritoneal Dialysis Skin Medical History: Reports Hx MRSA Psychiatric Medical History: Reports: Hx Bipolar Disorder, Hx Post Traumatic Stress Disorder Infectious Medical History: Reports: Hx MRSA Past Surgical History: Reports: Hx Orthopedic Surgery - C2 fracture. Denies: Hx Pacemaker - Immunizations Immunizations up to date: Yes Hx Diphtheria, Pertussis, Tetanus Vaccination: Yes Review of Systems - Review of Systems Constitutional: No symptoms reported Musculoskeletal: See HPI Skin: See HPI -: Yes All other systems reviewed and negative Physical Exam - Vital signs Vitals: Temp Pulse Resp BP Pulse Ox 99.2 F 91 16 134/85 H 97 11/22/19 20:37 11/22/19 20:37 11/22/19 20:37 11/22/19 20:37 11/22/19 20:37 Interpretation: Normal - Notes Notes: GENERAL: Alert, interacts well. No acute distress. HEAD: Normocephalic, atraumatic EYES: Pupils equal, round and reactive to light, extraocular movements intact. ENT: Oral mucosa moist, tongue midline. NECK: Full range of motion, supple, trachea midline. LUNGS: no respiratory distress. EXTREMITIES: Moves all 4 extremities spontaneously, ankle reveals a 3 cm gaping laceration to the medial aspect of the right ankle approximately 4 cm above the medial malleolus, tender to palpation, there is swelling right lower lip, no active drainage, no fluctuance, no evidence of abscess. Very tender to palpation, there is erythema although it only extends approximately 2 cm above the laceration. Dorsalis pedis pulses 2/4 bilaterally. No cyanosis. Full range of motion of the ankle and foot. Sensation intact. NEUROLOGICAL: Alert and oriented x3, normal speech. PSYCH: Normal mood, normal affect. Course - Re-evaluation Re-evalutation: 11/22/19 23:32 X-ray from earlier today does not reveal any injury to the bone, no osteomyelitis, no foreign body, no subcutaneous emphysema. Patient will be started on Keflex, placed on crutches to reduce movement, asked to do Epsom salt soaks and elevate the leg. Discharged home. - Vital Signs Vital signs: Temp Pulse Resp BP Pulse Ox 98.2 F 95 14 115/83 100 11/22/19 21:06 11/22/19 21:05 11/22/19 21:05 11/22/19 21:05 11/22/19 21:05 Discharge - Discharge Clinical Impression: Cellulitis of right ankle Laceration of right ankle with complication Qualifiers: Encounter type: subsequent encounter Qualified Code(s): S91.011D - Laceration without foreign body, right ankle, subsequent encounter Condition: Stable Disposition: HOME, SELF-CARE Additional Instructions: Cellulitis You have an infection of your skin and underlying soft tissues called cellulitis. This is due to bacteria, which can enter through any break in the skin, or even through an irritated hair follicle. Untreated, cellulitis will usually worsen. Antibiotics are required. Usually, warm packs or warm soaks, and elevation of the infected area are recommended. You should start getting better within 24 to 36 hours. Most infections respond quickly to the right medication. Follow-up care is important, however, to check for abscess (boil) formation, unsuspected foreign body, or resistant infection. If you develop fever, chills, or if the area of infection is becoming rapidly more swollen or painful, call the doctor at once. Epsom Salt Soaks Soak the wound area in a container of warm epsom salt water. If you can't get the wound area into a bucket or prater, use a folded towel soaked in the epsom salt solution and apply to the area. Use clean hot tap water (about the temperature of a very warm bath), mixing in about one (1) teaspoon for every pint of water. Two gallon --> 16 teaspoons Epsom Salts One gallon --> 8 teaspoons Epsom Salts Two quarts --> 4 teaspoons Epsom Salts One quart --> 2 teaspoons Epsom Salts Soak the wound for about 20 minutes while gently moving it around in the water. Repeat this four (4) times a day. Prescriptions: Cephalexin Monohydrate [Keflex 500 mg Capsule] 500 mg PO Q6H #28 capsule Forms: Return to Work Referrals: GREG MORALES PA-C [Primary Care Provider] - Follow up as needed
[2019-11-23 00:54] VITALS: BP 130/90
== END 2019-11-23 00:54 | disposition home or self-care (01) ==
LOC: ER 19:47
DX: Z23 Encounter for immunization (principal); S91.011D Laceration without foreign body, right ankle, subsequent encounter; L03.115 Cellulitis of right lower limb; M25.571 Pain in right ankle and joints of right foot; M79.604 Pain in right leg; W27.8XXD Contact with other nonpowered hand tool, subsequent encounter
CPT/HCPCS: 90471; 90715; 99283